=== PATIENT | male | born 1970 | race Caucasian/White ===

== ENCOUNTER 2018-07-17 10:30 | Outpatient (RCR) | payer BC | END 2018-07-17 11:00 | disposition still patient (30) | LOC: PT 10:30 | DX: M75.22 Bicipital tendinitis, left shoulder (principal) ==

== ENCOUNTER 2023-06-05 06:49 | Emergency (ER) | payer BC ==
[~2023-06-05] VITALS: Ht 180.3 cm; Wt 100.0 kg
[2023-06-05 06:50] VITALS: BP 124/92
[2023-06-05] MEDS ORDERED: LISINOPRIL20 MG PO (06:50)
== END 2023-06-05 08:10 | disposition home or self-care (01) ==
LOC: ED 06:49
DX: S63.501A Unspecified sprain of right wrist, initial encounter (principal); W18.30XA Fall on same level, unspecified, initial encounter; Y93.72 Activity, wrestling